=== PATIENT | female | born 1945 | race Caucasian/White ===

== ENCOUNTER 2017-06-26 13:57 | Emergency (ER) | payer MEDICARE, OTHER ==
[2017-06-26] MEDS ORDERED: LORAZEPAM 0.5 MG TABLET PO ONE (14:26)
--- NOTE | 2017-06-26 14:28 | Emergency Department Record ---
Anxiety - General Chief Complaint: Anxiety Stated Complaint: NOT FEELING WE AND ANXIETY Time Seen by Provider: 06/26/17 14:22 Source: Patient Mode of Arrival: Ambulatory Limitations: No limitations - History of Present Illness Initial Comments: The patient is here due to chronic anxiety. She has been feeling anxious for months and now feels like she needs something for it. She denies any CP, SOB, JORDANA, AP or sweating. She just feels anxious and restless at times but denies any suicidal ideation. MD Complaint: Anxiety Onset/Timin -: Month(s) Place: Home Previous History of Same: Yes Severity: Moderate Quality: Constant Provoking factors: Emotional stress, Work/job stress Improves With: Nothing Worsens With: Nothing - Related Data Home Medications: Home Medications Medication Instructions Recorded Confirmed Last Taken Aspirin [Aspirin EC] 81 mg PO DAILY 06/26/17 06/26/17 1 Day Ago ~06/25/17 Atorvastatin Calcium 80 mg PO DAILY 06/26/17 06/26/17 1 Day Ago ~06/25/17 Clopidogrel Bisulfate [Clopidogrel] 75 mg PO DAILY 06/26/17 06/26/17 1 Day Ago ~06/25/17 Lisinopril 2.5 mg PO DAILY 06/26/17 06/26/17 1 Day Ago ~06/25/17 Metoprolol Tartrate 12.5 mg PO BID 06/26/17 06/26/17 1 Day Ago ~06/25/17 Previous Rx's Medication Instructions Recorded Lorazepam [Ativan] 0.5 mg PO Q12HR #10 tablet 06/26/17 Allergies/Adverse Reactions: Allergies Allergy/AdvReac Type Severity Reaction Status Date / Time No Known Drug Allergies Allergy Verified 06/26/17 14:20 Travel Screening - Travel/Exposure Within Last 30 Days Have you traveled within the last 30 days?: No - Travel/Exposure Within Last Year Have you traveled outside the [place] in the last year?: No - Additonal Travel Details Have you been exposed to anyone with a communicable illness?: No - Travel Symptoms Symptom Screening: None Review of Systems Constitutional: Denies: Chills, Fever Eyes: Denies: Eye discharge ENT: Denies: Congestion Respiratory: Denies: Cough, Dyspnea Cardiovascular: Denies: Chest pain Past Medical History - SOCIAL HISTORY Smoking Status: Current every day smoker Alcohol Use: None Drug Use: None - RESPIRATORY Hx Respiratory Disorders: No - CARDIOVASCULAR Hx Cardiac Cath: Yes (02/2017 [facility]) Hx Heart Attack: Yes Hx Hypertension: Yes (watching) - NEURO Hx Neuro Disorders: No - GI Hx GI Disorders: No - Hx Genitourinary Disorders: No - ENDOCRINE Hx Endocrine Disorders: No - MUSCULOSKELETAL Hx Musculoskeletal Disorders: Yes Hx Arthritis: Yes (hands) - PSYCH Hx Anxiety: Yes - HEMATOLOGY/ONCOLOGY Hx Hematology/Oncology Disorders: No Family Medical History Any Significant Family History?: Yes Physical Exam - General General Appearance: Alert, Oriented x3, Cooperative, No acute distress - Head Head exam: Atraumatic, Normocephalic, Normal inspection - Eye Eye exam: Normal appearance, PERRL - Neck Neck exam: Normal inspection, Full ROM. negative: Tenderness - Respiratory Respiratory exam: Normal lung sounds bilaterally. negative: Respiratory distress - Cardiovascular Cardiovascular Exam: Regular rate, Normal rhythm, Normal heart sounds - GI/Abdominal GI/Abdominal exam: Soft, Normal bowel sounds. negative: Tenderness - Extremities Extremities exam: Normal inspection, Full ROM, Normal capillary refill. negative: Tenderness - Neurological Neurological exam: Alert, Normal gait, Oriented X3. negative: Abnormal gait, Motor sensory deficit - Psychiatric Psychiatric exam: Normal affect. negative: Agitated, Anxious, Depressed, Flat affect Course Vital Signs 06/26/17 14:13 Temperature 98.5 F Pulse Rate 56 L Respiratory 18 Rate Blood Pressure 162/65 Pulse Ox 99 - Reevaluation(s) Reevaluation #1: The patient is feeling better at this time. She states she is feeling more relaxed and is ready for home. I did discuss the lab results from [facility] and the need to F/U with her PCP for recheck and to go over her results. I did point out to her that her LFT's were slightly elevated and they will need to be addressed at tome time in the near future. 06/26/17 14:51 Medical Decision Making - Data Complexity MDM Data: Review and Summary of Old Record Discussed Disposition Disposition: Discharge Clinical Impression: Anxiety Disposition: Home, Self-Care Condition: (1) Good Instructions: Social Anxiety Disorder (ED) Additional Instructions: Please continue your regular medicines and add the Ativan as directed. Please see your PCP next week for recheck. Return to the ER for any problems. Prescriptions: Lorazepam [Ativan] 0.5 mg PO Q12HR #10 tablet Forms: Patient Portal Access Time of Disposition: 14:54 Quality - Quality Measures Quality Measures: N/A - Blood Pressure Screening View Details: Yes Does Patient Have Any of the Following: No Blood Pressure Classification: Pre-Hypertensive BP Reading Systolic Measurement: 127 Diastolic Measurement: 68 Screening for High Blood Pressure: < Pre-Hypertensive BP, F/U Documented > [ [id number]] Pre-Hypertensive Follow-up Interventions: Referral to alternative/primary care provider.
== END 2017-06-26 15:01 | disposition home or self-care (01) ==
LOC: ER 13:57
DX: F41.9 Anxiety disorder, unspecified (principal); R94.5 Abnormal results of liver function studies; I10 Essential (primary) hypertension; I25.2 Old myocardial infarction; F17.210 Nicotine dependence, cigarettes, uncomplicated
CPT/HCPCS: 99283